=== PATIENT | male | born 1990 | race Caucasian/White ===

== ENCOUNTER 2021-08-15 16:00 | Emergency (ER) | payer OTHER ==
[~2021-08-15] VITALS: Ht 177.8 cm; Wt 87.1 kg
[2021-08-15 17:39] VITALS: BP 150/73
== END 2021-08-15 17:42 | disposition left against medical advice (07) ==
LOC: M.ERS 16:00
DX: S09.90XA Unspecified injury of head, initial encounter (principal); W19.XXXA Unspecified fall, initial encounter; Y93.89 Activity, other specified; Y92.89 Other specified places as the place of occurrence of the external cause; Y99.8 Other external cause status